=== PATIENT | female | born 1970 | race Caucasian/White ===

== ENCOUNTER → 2016-10-16 | Outpatient (CLI) | payer MEDICAID ==
--- NOTE | 2016-10-16 18:10 | MA ---
Screening Digital Mammogram With iCAD Analysis Clinical Indications: Routine screening. Her maternal grandmother was diagnosed with breast cancer in her 60s. The patient has had reduction mammoplasty. Technique: Standard cephalocaudal and mediolateral oblique projections were obtained. This examinatio n was processed by the iCAD computer-aided detection system. Comparison: May 2013, May 2011, December 2008. Breast density: Type C; Heterogeneously dense. Findings: CAD was reviewed. There is an equivocal developing nodule in the medial right breast noted on the craniocaudal view. No suspicious calcifications are identified. The heterogeneous glandular pa ttern of the left breast is stable. Impression: Possible developing right breast nodule requires further evaluation. BI-RADS 0. Recommendation: Spot compression assessment of the right breast with ultrasound suggested if the abno rmality persists on diagnostic evaluation. [facility] will send a result letter to the patient. Dense breast parenchyma diminishes mammographic sensitivity. Negative mammography should not preclude additional workup of a clinically suspicious finding. The patient's information is entered into a reminder system with a target due date for her next mammo gram.
== END ==
LOC: FIMAGING 14:33
DX: Z12.31 Encounter for screening mammogram for malignant neoplasm of breast (principal); Z80.3 Family history of malignant neoplasm of breast

== ENCOUNTER → 2016-10-24 | Outpatient (CLI) | payer MEDICAID | LOC: FIMAGING 15:00 | PROVIDERS: ATTEND Family Medicine | DX: Z12.39 Encounter for other screening for malignant neoplasm of breast (principal); R92.2 Inconclusive mammogram | CPT/HCPCS: G0206 ==

== ENCOUNTER 2017-12-30 23:19 | Emergency (ER) | payer MEDICAID ==
--- NOTE | 2017-12-30 23:45 | CPEKG ---
Heart Rate: 52 RR Interval: 1154 P-R Interval: 160 QRSD Interval: 86 QT Interval: 440 QTC Interval: 410 P Johnson: 50 QRS Johnson: 68 T Wave Johnson: 25 EKG Severity - NORMAL ECG - EKG Impression: SINUS RHYTHM Electronically Signed By: Naila Segovia 01-Jan-2018 06:58:42
--- NOTE | 2017-12-31 00:21 | EDPHY ---
H & P Stated Complaint: chest pressure- nausea Time Seen by Provider: 12/30/17 23:30 HPI/ROS: HPI The patient presents with chest pain which began 2.5 hr prior to presentation in the emergency department. She went to a potluck dinner and ate a variety of foods. Several hours afterwards while at rest she developed a pressure like sensation of her left chest which was pleuritic and felt sharp at times. It is been constant ever since. She is able to fall asleep though awoke with the pain and it was associated with nausea and general dizziness. She did not have any shortness of breath or diaphoresis. She does not have any leg swelling or recent travel. REVIEW OF SYSTEMS Constitutional: No fever, no chills. Eyes: No discharge. ENT: No sore throat. Cardiovascular: No chest pain, no palpitations. Respiratory: No cough, no shortness of breath. Gastrointestinal: No abdominal pain, no vomiting. Genitourinary: No hematuria. Musculoskeletal: No back pain. Skin: No rashes. Neurological: No headache. PMHx: Healthy, no previous cardiac testing Soc Hx: Nonsmoker FHx: Paternal grandfather with OR at age 50 PHYSICAL General Appearance: Alert, no distress Eyes: Pupils equal and round no pallor or injection ENT, Mouth: Mucous membranes moist Respiratory: There are no retractions, lungs are clear to auscultation Cardiovascular: Regular rate and rhythm , no chest wall tenderness Gastrointestinal: Abdomen is soft and non-tender, no masses, bowel sounds normal Neurological: A&O, moves all extremities Skin: Warm and dry, no rashes Musculoskeletal: Neck is supple non tender Extremities: symmetrical, full range of motion Psychiatric: Patient is oriented X 3, there is no agitation Source: Patient Exam Limitations: No limitations - Personal History LMP (Females 10-55): 1-7 Days Ago Current Tetanus/Diphtheria Vaccine: Yes - Medical/Surgical History Hx Asthma: Yes Hx Chronic Respiratory Disease: No Hx Diabetes: No Hx Cardiac Disease: No Hx Renal Disease: No Hx Cirrhosis: No Hx Alcoholism: No Hx HIV/AIDS: No Hx Splenectomy or Spleen Trauma: No - Social History Smoking Status: Never smoked Constitutional: Initial Vital Signs Temperature (C) 36.9 C 12/30/17 23:25 Heart Rate 67 12/30/17 23:25 Respiratory Rate 18 12/30/17 23:25 Blood Pressure 137/85 H 12/30/17 23:25 O2 Sat (%) 97 12/30/17 23:25 O2 Delivery Mode Room Air Allergies/Adverse Reactions: No Known Allergies Allergy (Unverified 12/30/17 23:25) Home Medications: Medication Instructions Recorded NK [No Known Home Meds] 12/30/17 Medical Decision Making - Diagnostics EKG Interpretation: EKG: Complete interpretation has been separately recorded in the [employer] archive. Summary impression: Normal sinus rhythm Imaging Results: Chest x-ray two view shows no cardiomegaly, no infiltrate, interpreted by me, radiology interpretation is pending. Imaging: I viewed and interpreted images myself Differential Diagnosis: This is a 47-year-old female who is healthy who presents with chest pain and nausea for the last several hours. Differential diagnosis includes ACS, indigestion, anxiety, PE. In the emergency department, patient was placed on personnel monitor with no event. EKG, chest x-ray, labs were all within normal limits including troponin and D-dimer. Patient's pain subsided somewhat. I suspect her pain could be musculoskeletal versus costochondritis verses GERD. I have explained this to her. I have instructed her to try anti- inflammatories I would like for her to follow up with her primary care doctor tomorrow. I have also given a referral for Cardiology. She is in agreement with this plan. - Data Points Laboratory Results: Laboratory Results 12/31/17 00:05 12/31/17 00:05 12/31/17 12/31/17 12/31/17 00:05 00:05 00:05 WBC 8.83 10^3/uL 10^3/uL (3.80-9.50) RBC 4.40 10^6/uL 10^6/uL (4.18-5.33) Hgb 12.8 g/dL g/dL (12.6-16.3) Hct 38.5 % % (38.0-47.0) MCV 87.5 fL fL (81.5-99.8) MCH 29.1 pg pg (27.9-34.1) MCHC 33.2 g/dL g/dL (32.4-36.7) RDW 13.7 % % (11.5-15.2) Plt Count 264 10^3/uL 10^3/uL (150-400) MPV 10.2 fL fL (8.7-11.7) Neut % (Auto) 54.6 % % (39.3-74.2) Lymph % (Auto) 35.4 % % (15.0-45.0) [place] % (Auto) 7.7 % % (4.5-13.0) Eos % (Auto) 1.4 % % (0.6-7.6) Baso % (Auto) 0.8 % % (0.3-1.7) Nucleat RBC Rel Count 0.0 % % (0.0-0.2) Absolute Neuts (auto) 4.82 10^3/uL 10^3/uL (1.70-6.50) Absolute Lymphs (auto) 3.13 10^3/uL H 10^3/uL (1.00-3.00) Absolute Monos (auto) 0.68 10^3/uL 10^3/uL (0.30-0.80) Absolute Eos (auto) 0.12 10^3/uL 10^3/uL (0.03-0.40) Absolute Basos (auto) 0.07 10^3/uL 10^3/uL (0.02-0.10) Absolute Nucleated RBC 0.00 10^3/uL 10^3/uL (0-0.01) Immature Gran % 0.1 % % (0.0-1.1) Immature Gran # 0.01 10^3/uL 10^3/uL (0.00-0.10) D-Dimer < 0.27 ug/mLFEU ug/mLFEU (0.00-0.50) Sodium 141 mEq/L mEq/L (135-145) Potassium 3.9 mEq/L mEq/L (3.5-5.2) Chloride 105 mEq/L mEq/L (97-110) Carbon Dioxide 27 mEq/l mEq/l (22-31) Anion Gap 9 mEq/L mEq/L (8-16) BUN 15 mg/dL mg/dL (7-23) Creatinine 0.6 mg/dL mg/dL (0.6-1.0) Estimated GFR > 60 Glucose 86 mg/dL mg/dL (70-100) Calcium 8.9 mg/dL mg/dL (8.5-10.4) Troponin I < 0.012 ng/mL ng/mL (0.000-0.034) Departure - Departure Disposition: Home, Routine, Self-Care Clinical Impression: Chest pain, Nausea Condition: Good Instructions: Chest Pain (ED) Additional Instructions: Please return to the emergency department if your worse in any way. I would like for you to follow up with Dr. Kate the assembler [employer] foot[employer] or your primary care doctor within the next 1 week. They can determine if you need to have any testing of your heart. You should return to the emergency department if your worse in any way. Referrals: Karin Siegel MD [Primary Care Provider] - As per Instructions Vargas Kate MD [Medical Doctor] - As per Instructions
[2017-12-31 00:26] LABS: PLATELET COUNT 264 10^3/uL (150-400)
[2017-12-31 01:10] VITALS: BP 116/76
== END 2017-12-31 01:10 | disposition home or self-care (01) ==
DX: R07.9 Chest pain, unspecified (principal); R11.0 Nausea; J45.909 Unspecified asthma, uncomplicated